=== PATIENT | female | born 1950 | race Caucasian/White ===

== ENCOUNTER → 2017-04-02 | Outpatient (CLI) | payer MEDICARE, OTHER ==
--- NOTE | 2017-04-03 16:19 | WOMENS IMAGING REPORT ---
EXAM DESCRIPTION: 3D SCREENING MAMMO BILAT COMPLETED DATE/TIME: 04/02/2017 10:41 am REASON FOR STUDY: ROUTINE SCREENING; Z12.31 Z12.31 ENCNTR SCREEN MAMMOGRAM FOR MALIGNANT NEOPLASM O F ALVINO COMPARISON: None. TECHNIQUE: Standard craniocaudal and mediolateral oblique views of each breast recorded using digita l acquisition and breast tomosynthesis. LIMITATIONS: None. FINDINGS: No masses, calcifications or architectural distortion. No areas of suspicion. Read with the assistance of CAD. .[facility] - R2 Cenova Version 1.3 .[facility] - R2 Cenova Version 1.3 .[facility] - R2 Cenova Version 2.4 .[facility] [place] R2 Cenova Version 2.4 .[facility] - R2 Scarfer Version 9.2 IMPRESSION: NORMAL MAMMOGRAM. BIRADS 1. BREAST DENSITY: a. The breasts are almost entirely fatty. BIRAD: 1 NEGATIVE RECOMMENDATION: ROUTINE SCREENING COMMENT: The patient has been notified of the results by letter per SA requirements. Additional no tification policies are in place for contacting patient with suspicious or incomplete findings. Quality ID #225: The [employer] recommends an annual screening mammogram for women aged 40 years or over. This facility utilizes a reminder system to ensure that all patients receive reminder letters, and/or direct phone calls for appointments. This includes reminders for routine scr eening mammograms, diagnostic mammograms, or other Breast Imaging Interventions when appropriate. Th is patient will be placed in the appropriate reminder system. The [employer] (ACR) has developed recommendations for screening MRI of the breast s in certain patient populations, to be used in conjunction with mammography. Breast MRI surveillanc e may be appropriate for women with more than 20% lifetime risk of developing breast cancer as deter mined by genetic testing, significant family history of the disease, or history of mantle radiation f or Hodgkins Disease. ACR Practice Guidelines 2008. DBT Technology DBT is a type of tomographic mammography. With conventional mammography, overlapping breast tissue ma y make lesions difficult to detect, even with good compression. DBT uses an x-ray tube that rotates a round the breast, taking images at different angles. These images are then combined to create thin sl ices of the breast that the radiologist can view as a 3D reconstruction. The [employer] unit can perform full-field digital mammograms (2D imaging); or DBT (3D imaging); or both, in a combination mode that quickly performs both the mammogram and the tomosynthesis scan while the breast is still compressed. PQRS 6045F: Fluoroscopic imaging is not utilized for breast tomosynthesis. TECHNICAL DOCUMENTATION: FINDING NUMBER: (1) ASSESSMENT: (1) JOB ID: [id number] [employer]- All Rights Reserved
== END ==
LOC: WI 09:20
PROVIDERS: ATTEND Family Medicine
DX: Z12.31 Encounter for screening mammogram for malignant neoplasm of breast (principal)
CPT/HCPCS: 77063; 77067

== ENCOUNTER → 2018-11-19 | Day surgery (SDC) | payer MEDICARE, OTHER ==
[~2018-11-19] MED LIST: LIDOCAINE 1% INJ-PF (10 MG/ML) 30 ML SDV ONE
== END ==
LOC: WI 12:14
PROVIDERS: ATTEND Family Medicine
DX: C50.911 Malignant neoplasm of unspecified site of right female breast (principal); C77.3 Secondary and unspecified malignant neoplasm of axilla and upper limb lymph nodes; N63.10 Unspecified lump in the right breast, unspecified quadrant
CPT/HCPCS: 88342 ×2; 88341 ×2; 88305 ×2; 19083; 19084; 77065; J3490

== ENCOUNTER → 2018-12-17 | Outpatient (CLI) | payer MEDICARE, OTHER ==
--- NOTE | 2018-12-17 14:16 | RADIOLOGY REPORT (SQ) ---
EXAM DESCRIPTION: NM WHOLE BODY BONE SCAN COMPLETED DATE/TIME: 12/17/2018 12:04 pm REASON FOR STUDY: BREAST CA (C50.811) C50.811 MALIGNANT NEOPLASM OF OVRLP SITES OF RIGHT FEMALE BR COMPARISON: None available. RADIONUCLIDE AND DOSE: 22 millicuries Tc99m MDP. The route of agent administration: Intravenous. ADDITIONAL DRUGS AND DOSES: None. TECHNIQUE: Routine delayed images at 3 hour post radionuclide injection acquired of the bony skeleto n including anterior and posterior whole-body projections and additional focused images as needed. LIMITATIONS: Increased soft tissue uptake. Associated somewhat limited resolution of the bones. Th is is at least mildly limiting. FINDINGS: BONES: Slightly heterogeneous rib and spine uptake. The spine uptake may be degenerative. Ribs are indeterminate but could be due to the above-noted sub optimal imaging. Focal increased up take about the right hip, lesser extent left hip. Possibly degenerative. Degenerative changes are a lso suspected in the knees, ankles, feet and shoulders. KIDNEYS: Symmetric excretion without obstruction. OTHER: No other significant finding. IMPRESSION: Somewhat limited study as above. Predominantly degenerative changes are suspected. Het erogeneous spine and rib uptake, however. Unclear if this is simply artifact If the patient has outside CT imaging of the thorax and pelvis, correlation with prove helpful. If n ot, consider body CT imaging and/or PET. COMMENT: Quality measure 147: No available prior imaging studies for comparison TECHNICAL DOCUMENTATION: JOB ID: [id number] [employer]- All Rights Reserved Reading location - IP/workstation name: [email or web address]
== END ==
LOC: RAD 07:46
PROVIDERS: ATTEND Internal Medicine Hematology & Oncology
DX: C50.811 Malignant neoplasm of overlapping sites of right female breast (principal)
CPT/HCPCS: 78306; A9561; Q9969

== ENCOUNTER → 2018-12-18 | Outpatient (CLI) | payer MEDICARE, OTHER ==
--- NOTE | 2018-12-18 15:04 | RADIOLOGY REPORT (SQ) ---
EXAM DESCRIPTION: CT CHEST WITH; CT ABD/PELVIS WITH IV ORAL COMPLETED DATE/TIME: 12/18/2018 1:14 pm REASON FOR STUDY: BREAST CA (C50.811) C50.811 MALIGNANT NEOPLASM OF OVRLP SITES OF RIGHT FEMALE BR COMPARISON: Bone scan 12/17/2018 Ultrasound-guided breast biopsy 11/19/2018 CONTRAST TYPE AND DOSE: contrast/concentration: Isovue 350.00 mg/ml; Total Contrast Delivered: 100.0 ml; Total Saline Delivered: 72.0 ml RENAL FUNCTION: Creatinine 0.9 TECHNIQUE: CT scan of the chest performed using helical scanning technique with dynamic intravenous contrast injection. Images reviewed with lung, soft tissue and bone windows. Reconstructed coronal a nd sagittal MPR images reviewed. All images stored on PACS. CT scan of the abdomen and pelvis performed with intravenous and with oral contrastusing helical scan june technique with dynamic intravenous contrast injection. Images reviewed with lung, soft tissue a nd bone windows. Reconstructed coronal and sagittal MPR images reviewed. Delayed images for evaluat ion of the urinary system also acquired and evaluated. All images stored on PACS. All CT scanners at this facility use dose modulation, iterative reconstruction, and/or weight based d osing when appropriate to reduce radiation dose to as low as reasonably achievable (ALARA). [facility]: Dose Right [facility]: CareDose [facility]: Dose Right [facility]: Teradose 4D [facility]: Smart Technologies RADIATION DOSE: CT Rad equipment meets quality standard of care and radiation dose reduction techniq ues were employed. CTDIvol: 19.5 - 27.7 mGy. DLP: 3606 mGy-cm. . LIMITATIONS: None. FINDINGS: CHEST: LUNGS AND PLEURA: No opacities, nodules, masses. No pneumothorax. No effusions. HILAR AND MEDIASTINAL STRUCTURES: No identified masses or abnormal nodes. HEART AND VASCULAR STRUCTURES: No thoracic aortic aneurysm or dissection. Calcified coronary arterie s. Prominent central pulmonary arteries and mild cardiomegaly. HARDWARE: None. THYROID AND OTHER SOFT TISSUES: Right axillary lymph node biopsy clip 3 x 2 cm in size axial image 17 , coronal image 53. 1.8 cm breast mass with clip in the right retroareolar region axial image 24 BONES: No significant finding. OTHER: No other significant finding. ABDOMEN AND PELVIS: LIVER: Normal size. No masses. No dilated ducts. SPLEEN: Normal size. No focal lesions. PANCREAS: No masses. No significant calcifications. No adjacent inflammation or peripancreatic fluid collections. Pancreatic duct not dilated. GALLBLADDER: Surgically absent. ADRENAL GLANDS: No significant masses or asymmetry. RIGHT KIDNEY AND URETER: No solid masses. No significant calcification. No hydronephrosis or hydroure ter. LEFT KIDNEY AND URETER: No solid masses. No significant calcification. No hydronephrosis or hydrouret er. AORTA AND VESSELS: No aneurysm. No dissection. Renal arteries, SMA, celiac without stenosis. RETROPERITONEUM: No retroperitoneal adenopathy, hemorrhage or masses. BOWEL AND PERITONEAL CAVITY: No masses or inflammatory changes. No free fluid or peritoneal masses. Patient drank oral contrast. APPENDIX: Not identified. No right lower quadrant inflammatory change ABDOMINAL WALL: Fat containing umbilical hernia PELVIS: No mass or free fluid. Normal bladder. Post hysterectomy BONES: Advanced arthritis right hip OTHER: No other significant finding. IMPRESSION: Previously biopsied malignant right breast mass and malignant right axillary lymph node. No CT evidence of widespread metastatic disease given history of breast cancer TECHNICAL DOCUMENTATION: JOB ID: [id number] Quality ID # [id number]: Final reports with documentation of one or more dose reduction techniques (e.g., Au tomated exposure control, adjustment of the mA and/or kV according to patient size, use of iterative reconstruction technique) 2010 [employer]- All Rights Reserved Reading location - IP/workstation name: [email or web address]
== END ==
LOC: RAD 12:33
PROVIDERS: ATTEND Internal Medicine Hematology & Oncology
DX: C50.811 Malignant neoplasm of overlapping sites of right female breast (principal)
CPT/HCPCS: 71260; 74177; 82565

== ENCOUNTER → 2019-05-31 | Outpatient (CLI) | payer MEDICARE, OTHER ==
--- NOTE | 2019-05-31 11:24 | WOMENS IMAGING REPORT ---
EXAM DESCRIPTION: U/S BREAST UNILAT LIMITED COMPLETED DATE/TIME: 05/31/2019 9:44 am REASON FOR STUDY: C50.811 MALIGNANT NEOPLASM OF OVERLAPPING SITES OF RIGHT FEMALE BREAST C50.811 MA LIGNANT NEOPLASM OF OVRLP SITES OF RIGHT FEMALE BR COMPARISON: 11/19/2018 ultrasound and mammograms. TECHNIQUE: Real-time and static grayscale imaging performed of the right breast targeted to the area of clinical/mammographic concern. Selected color Doppler images recorded. LIMITATIONS: None. FINDINGS: MASS: 12 o'clock periareolar irregular hypoechoic mass with shadowing and ill definition o f margins, spiculated appearance. On today's study this measures 2.5 x 1.9 x 2.2 cm. On prior study from 2019, grossly 1.8 x 1.3 x 2.3 cm. Ill-defined margins makes precise comparison difficult. OTHER: Node in the right axilla measures up to 1.1 cm in short axis IMPRESSION: 1. Known right breast cancer. Limited direct comparison possible given ill-defined margins of the ma ss as above. BIRAD: 6 Known biopsy-proven malignancy. Surgical excision when clinically appropriate. RECOMMENDATION: RECOMMENDED FOLLOW-UP: Clinical followup per oncology and surgery. Reportedly, the patient states no treatment, I have limited clinical information. COMMENT: The [employer] (ACR) has developed recommendations for screening MRI of the breasts in certain patient populations, to be used in conjunction with mammography. Breast MRI s urveillance may be appropriate for women with more than 20% lifetime risk of developing breast cancer as determined by genetic testing, significant family history of the disease, or history of mantle r adiation for Hodgkins Disease. ACR Practice Guidelines 2008. TECHNICAL DOCUMENTATION: JOB ID: [id number] 2010 [employer]- All Rights Reserved Reading location - IP/workstation name: [email or web address]
== END ==
LOC: WI 08:45
PROVIDERS: ATTEND Physician Assistant Medical
DX: C50.811 Malignant neoplasm of overlapping sites of right female breast (principal)
CPT/HCPCS: 76642

== ENCOUNTER 2019-06-16 08:12 | Day surgery (SDC) | payer MEDICARE, OTHER ==
[~2019-06-16 08:12] MED LIST changes: +ACETAMINOPHEN 325 MG TABLET PO PRN; +CEFAZOLIN 1 GM/D5W RTU 1 GM/50 ML RTUPB IV ONE; +CEFAZOLIN 1 GM/D5W RTU 1 GM/50 ML RTUPB IV PRN; +DEXAMETHASONE SOD PHOSPHATE INJ 4 MG/1 ML VIAL ONE; +FENTANYL CITRATE INJ/PF 100 MCG/2 ML AMPUL ONE; +GLYCOPYRROLATE 1 MG/5 ML VIAL ONE; +HYDROMORPHONE HCL INJ/PF 2 MG/ML AMPULE ONE; +KETOROLAC TROMETHAMINE 60 MG/2 ML SDV ONE; -LIDOCAINE 1% INJ-PF (10 MG/ML) 30 ML SDV ONE; +MIDAZOLAM 2 MG/2 ML INJ ONE; +ONDANSETRON HCL INJ/PF 4 MG/2 ML SDV ONE; +RINGERS SOLUTION,LACTATED 1,000 ML IV PRN; +ROCURONIUM BROMIDE INJ 50 MG/5 ML VIAL IV ONE; +SUCCINYLCHOLINE CHLORIDE INJ 200 MG/10 ML VIAL ONE
[2019-06-16] MEDS ORDERED: PROPOFOL INJ 200 MG/20 ML VIAL IV ONE (08:13)
[2019-06-16 09:04] LABS: ANION GAP 12 (5-19); BLOOD UREA NITROGEN 15 mg/dL (7-20); CALCIUM 9.4 mg/dL (8.4-10.2); CARBON DIOXIDE 26 mmol/L (22-30); CHLORIDE 101 mmol/L (98-107); GLUCOSE 152 mg/dL (75-110); POTASSIUM 4.4 mmol/L (3.6-5.0)
[2019-06-16 09:18] LABS: HEMATOCRIT 41.6 % (36.0-47.0); HEMOGLOBIN 14.1 g/dL (12.0-15.5); MEAN CORPUSCULAR HEMOGLOBIN 32.2 pg (27.0-33.4); MEAN CORPUSCULAR HGB CONC 33.9 g/dL (32.0-36.0); MEAN CORPUSCULAR VOLUME 95 fl (80-97); PLATELET COUNT 261 10^3/uL (150-450); RED BLOOD COUNT 4.39 10^6/uL (3.72-5.28); RED CELL DISTRIBUTION WIDTH 15.3 % (11.5-14.0); WHITE BLOOD COUNT 9.1 10^3/uL (4.0-10.5)
[2019-06-16] MEDS ORDERED: MICROFIBRILLAR COLLAGEN 1 GM PACK ONE (09:19)
[2019-06-16] MEDS ORDERED: METHYLENE BLUE 50 MG/10 ML AMPULE ONE (09:20)
[2019-06-16] MEDS ORDERED: LIDOCAINE 1%/EPINEPHRINE INJ 20 ML VIAL ONE (09:20)
[2019-06-16] MEDS ORDERED: MORPHINE SULFATE 10 MG/ML INJ IV PRN (10:08)
[2019-06-16] MEDS ORDERED: DIPHENHYDRAMINE HCL 50 MG/ML VIAL IV PRN (10:08)
[2019-06-16] MEDS ORDERED: MEPERIDINE HCL/PF INJ 25 MG/1 ML DISP.SYRIN IV PRN (10:08)
[2019-06-16] MEDS ORDERED: FENTANYL CITRATE INJ/PF 100 MCG/2 ML AMPUL IV PRN ×3 (10:08)
[2019-06-16] MEDS ORDERED: ONDANSETRON HCL INJ/PF 4 MG/2 ML SDV IV PRN (10:08)
--- NOTE | 2019-06-16 11:25 | EKG REPORT ---
SEVERITY:- OTHERWISE NORMAL ECG - SINUS BRADYCARDIA NONSPECIFIC IVCD : Confirmed by: Salvador Colin MD 16-Jun-2019 11:24:18
[2019-06-16] MEDS ORDERED: ACETAMINOPHEN WITH CODEINE #3 TABLET PO PRN (11:55)
[2019-06-16] MEDS ORDERED: DEXTROSE 5%-LACTATED RINGERS 1,000 ML IV PRN (11:55)
--- NOTE | 2019-06-16 12:41 | Operative Report ---
Operative Report DATE OF SURGERY: 06/16/19 PREOPERATIVE DIAGNOSIS: Locally advanced, hormone sensitive invasive ductal car cinoma right breast and axilla POSTOPERATIVE DIAGNOSIS: Same OPERATION: Right modified radical mastectomy, with drain placement x2 SURGEON: SERENITY PEREZ CRANE HOIST OR LIFT OPERATOR: PABLO ENGLISH ANESTHESIA: GA TISSUE REMOVED OR ALTERED: Right breast, and axillary contents en bloc COMPLICATIONS: none ESTIMATED BLOOD LOSS: 150 cc INTRAOPERATIVE FINDINGS: See below PROCEDURE: The patient was taken to the preop holding area to the main operating room and general anesthesia was induced. The right arm was abducted, the right axilla and right breast and chest wall were prepped and draped sterile fashion. Surgical plan surgical timeout were conducted. Markings were made on the skin for standard right mastectomy. The elliptical markings extended from the parasternal area to the right axilla. Of note patient had previous hidradenitis suppurativa of the right axilla with significant scarring of the right axillary skin. The ellipse of skin was incised with a #10 blade. Superior and inferior skin flaps were raised of appropriate thickness. Superiorly the level of dissection was taken to the subclavicular area. Medially the dissection was taken to the parasternal musculature, and inferiorly the serratus anterior muscle. The right breast was taken off of the anterior chest wall including the pectoralis major fascia. Inferiorly and laterally, the dissection was taken down to the latissimus dorsi muscle. Bookwalter retractor was established for exposure. We now opened the skin laterally, elevating the axillary skin off of the axillary fat. There is a moderate amount of scarring in this region. Once the lateral axillary fold was free, we established retraction up underneath the pectoralis major muscle. We now completed the axillary dissection which was felt to be comprehensive. Dissection was taken down and sequential fashion moving from cephalad to caudad, taking all of the biliary fat and lymph nodes. Axillary fat was quite loose and flimsy. The fat beneath the pectoralis major muscle, and pectoralis minor muscle was mobilized. The nerve to the serratus anterior muscle was preserved throughout the dissection. Similarly, the thoracodorsal complex was preserved throughout the dissection. Both of these nerves were pinched with a forceps, and respective muscles twitched. A single intercostal brachial nerve was sacrificed in the dissection. We took the axillary contents off of the axillary vein under direct scissor dissection. Working now in a circumferential fashion, all the axillary fat and lymphatic tissue was stripped off of the axillary vein, and thoracodorsal pedicle. Eventually we had the entire axillary contents freed up, and the specimen was taken off of the patient and sent en bloc to pathology. Loose fragments of fat lymphatic tissue also sent. 2 large Donny drains were placed in the inferior skin flap. Hemostasis was checked, felt to be satisfactory. Operative field irrigated several times with warm saline solution. Sponge and needle counts are correct. Wound closed with multiple running 2-0 Vicryl sutures and Dermabond glue. Patient time procedure well, extubated, taken recovery in stable condition. The physician customer service assistant, Ms. Pacheco, provided assistance during this case by: Assisting with retracting tissue, instillation of local anesthesia and closure of skin incisions.
[2019-06-16] MEDS: FENTANYL CITRATE INJ/PF 100 MCG/2 ML AMPUL ONE ×2 (13:00→13:10)
--- NOTE | 2019-06-17 08:15 | PDOC DISCHARGE SUMMARY ---
General - Admit/Disc Date/PCP Admission Date/Primary Care Provider: EDILSON GARZON MD Discharge Date: 06/17/19 - Discharge Diagnosis Final Diagnosis: Invasive right breast carcinoma - Assessment Summary: 68-year-old white female with locally advanced right breast carcinoma who was admitted to the ambulatory surgery for right modified radical mastectomy. She tolerated the procedure well. She had an uneventful night in the hospital, pain managed, and she voided without difficulty. She was taught drain management, drainage and recording of output. She will take her home medications upon discharge including pain medication. She will receive a follow-up appointment with [facility] in 1 week. She is instructed right arm exercises, and mastectomy packet provided. - Additional Information Resuscitation Status: Full Code Discharge Diet: As Tolerated Discharge Activity: Other - Encouraged range of motion right arm; he may shower today. Referrals: EDILSON GARZON MD [Primary Care Provider] - Home Medications: Alendronate Sodium 70 mg PO FR@1000 06/15/19 Allopurinol [Zyloprim] 300 mg PO DAILY 06/15/19 Alprazolam [Xanax] 0.5 mg PO Q6 06/15/19 Ascorbic Acid [Vitamin C] 250 mg PO Q2DAYS 06/15/19 Aspirin [Aspir-Low] 81 mg PO DAILY 06/15/19 Fenofibrate 54 mg PO DAILY 06/15/19 Ferrous Gluconate [Iron] 325 mg PO Q2DAYS 06/15/19 Levothyroxine Sodium 175 mcg PO DAILY 06/15/19 Metoprolol Succinate [Toprol Xl 50 mg Tab.sr] 50 mg PO Q12 06/15/19 Pantoprazole Sodium 40 mg PO DAILY 06/15/19 Fluticasone Propionate [Flonase Allergy Relief] 1 spray NASL DAILY 06/16/19 Letrozole [Femara 2.5 mg Tablet] 2.5 mg PO DAILY 06/16/19 Venlafaxine HCl ER [Effexor Xr 75 mg Cap.sr] 75 mg PO QAM 06/16/19 Hydrocodone/Acetaminophen [[place] 10-325 mg Tablet] 1 tab PO Q6HP PRN 06/17/19 History of Present Illiness History of Present Illness: ODILON BEAR is a 68 year old female Physical Exam Vital Signs: Temp Pulse Resp BP Pulse Ox 98.1 F 64 16 147/60 H 97 06/17/19 07:29 06/17/19 07:29 06/17/19 07:29 06/17/19 07:29 06/17/19 07:29 Intake & Output 06/16/19 06/17/19 06/18/19 06:59 06:59 06:59 Intake Total 3970 Output Total 2330 Balance 1640 Weight 105.69 kg 107.1 kg Results Laboratory Results: WBC 9.1 10^3/uL (4.0-10.5) 06/16/19 08:38 RBC 4.39 10^6/uL (3.72-5.28) 06/16/19 08:38 Hgb 14.1 g/dL (12.0-15.5) 06/16/19 08:38 Hct 41.6 % (36.0-47.0) 06/16/19 08:38 MCV 95 fl (80-97) 06/16/19 08:38 MCH 32.2 pg (27.0-33.4) 06/16/19 08:38 MCHC 33.9 g/dL (32.0-36.0) 06/16/19 08:38 RDW 15.3 % (11.5-14.0) H 06/16/19 08:38 Plt Count 261 10^3/uL (150-450) 06/16/19 08:38 Sodium 138.6 mmol/L (137-145) 06/16/19 08:38 Potassium 4.4 mmol/L (3.6-5.0) 06/16/19 08:38 Chloride 101 mmol/L (98-107) 06/16/19 08:38 Carbon Dioxide 26 mmol/L (22-30) 06/16/19 08:38 Anion Gap 12 (5-19) 06/16/19 08:38 BUN 15 mg/dL (7-20) 06/16/19 08:38 Creatinine 0.81 mg/dL (0.52-1.25) 06/16/19 08:38 Est GFR ( Amer) > 60 (>60) 06/16/19 08:38 Est GFR (MDRD) Non-Af > 60 (>60) 06/16/19 08:38 Glucose 152 mg/dL (75-110) H 06/16/19 08:38 Calcium 9.4 mg/dL (8.4-10.2) 06/16/19 08:38
[2019-06-17 09:07] VITALS: BP 140/52
[2019-06-17] MEDS ORDERED: ALLOPURINOL 300 MG TABLET PO SCH (10:00)
[2019-06-17] MEDS ORDERED: ASPIRIN 81 MG TABLET, ENT COATED PO SCH (10:00)
[2019-06-17] MEDS ORDERED: (PENDING PHARMACY ID) (Ascorbic Acid [Vitamin C] 250 MG) PO SCH (10:00)
[2019-06-17] MEDS ORDERED: VENLAFAXINE HCL 75 MG TABLET PO SCH (10:00)
[2019-06-17] MEDS ORDERED: METOPROLOL SUCCINATE 50 MG TAB.SR.24H PO SCH (10:00)
[2019-06-17] MEDS ORDERED: PANTOPRAZOLE SODIUM 40 MG TABLET.DR PO SCH (10:00)
[2019-06-17] MEDS ORDERED: (PENDING PHARMACY ID) (Fenofibrate [Fenofibrate] 54 MG) PO SCH (10:00)
[2019-06-17] MEDS ORDERED: (PENDING PHARMACY ID) (Levothyroxine Sodium [Levothyroxine Sodium] 175 MCG) PO SCH (10:00)
[2019-06-17] MEDS ORDERED: ALPRAZOLAM 0.5 MG TABLET PO SCH (10:00)
== END 2019-06-17 09:45 | disposition home or self-care (01) ==
LOC: OROUT 08:12 → 2S 14:25 → OROUT 06-17 09:45
PROVIDERS: ATTEND Surgery
DX: C50.811 Malignant neoplasm of overlapping sites of right female breast (principal); E05.90 Thyrotoxicosis, unspecified without thyrotoxic crisis or storm; E03.9 Hypothyroidism, unspecified; E78.5 Hyperlipidemia, unspecified; D53.9 Nutritional anemia, unspecified; E78.00 Pure hypercholesterolemia, unspecified; I49.9 Cardiac arrhythmia, unspecified; G89.4 Chronic pain syndrome; F11.20 Opioid dependence, uncomplicated; I12.9 Hypertensive chronic kidney disease with stage 1 through stage 4 chronic kidney disease, or unspecified chronic kidney disease; N18.2 Chronic kidney disease, stage 2 (mild); Z85.41 Personal history of malignant neoplasm of cervix uteri; M06.9 Rheumatoid arthritis, unspecified; D64.9 Anemia, unspecified; Z79.899 Other long term (current) drug therapy; Z79.82 Long term (current) use of aspirin
CPT/HCPCS: 36415; 85027; 80048; 88342 ×2; 88341 ×2; 88309 ×2; 93005; 93010; 94799; 00404; 19307; A9270; J2250; J0690; J3490 ×3; J1100; J1885; J3010; J1170; J0330; J2405; J7121; J2704; 404; Q9968

== ENCOUNTER 2019-07-03 14:17 | Emergency (ER) | payer MEDICARE, OTHER ==
--- NOTE | 2019-07-03 14:39 | ER Document Report ---
HPI - HPI Time Seen by Provider: 07/03/19 14:24 Pain Level: 3 Notes: 68-year-old female patient presents to the emergency department chief complaint of concern for possible infection to her surgical site. Patient had a right- sided mastectomy done on 06/16/[address] Gonsalez. She states that over the last couple days there is been increased redness, warmth and pain to the area. She states she called the on-call surgeon last night who directed her to try warm compresses to the area. Patient reports the warm compresses did not help. She has not had a fever. Past Medical History - General Information source: Patient - Social History Smoking Status: Former Smoker Frequency of alcohol use: Rare Drug Abuse: None Family History: Reviewed & Not Pertinent Patient has suicidal ideation: No Patient has homicidal ideation: No - Medical History Medical History: Other - breast cancer - Past Medical History Cardiac Medical History: Denies: Hx Coronary Artery Disease, Hx Heart Attack, Hx Hypertension Pulmonary Medical History: Denies: Hx Asthma, Hx Bronchitis, Hx COPD, Hx Pneumonia Neurological Medical History: Denies: Hx Cerebrovascular Accident, Hx Seizures Musculoskeletal Medical History: Reports Hx Arthritis - RA, OA Past Surgical History: Reports: Hx Breast Surgery - Immunizations Immunizations up to date: Yes Hx Diphtheria, Pertussis, Tetanus Vaccination: - UNSURE Vertical Provider Document - CONSTITUTIONAL Notes: PHYSICAL EXAMINATION: GENERAL: Well-appearing, well-nourished and in no acute distress. HEAD: Atraumatic, normocephalic. EYES: Pupils equal round and reactive to light, extraocular movements intact, conjunctiva are normal. ENT: Nares patent, oropharynx clear without exudates. Moist mucous membranes. NECK: Normal range of motion, supple without lymphadenopathy LUNGS: Breath sounds clear to auscultation bilaterally and equal. No wheezes rales or rhonchi. HEART: Regular rate and rhythm without murmurs ABDOMEN: Soft, nontender, nondistended abdomen. No guarding, no rebound. No masses appreciated. Female : deferred Musculoskeletal: Normal range of motion, no pitting or edema. No cyanosis. NEUROLOGICAL: Cranial nerves grossly intact. Normal speech, normal gait. Norm al sensory, motor exams PSYCH: Normal mood, normal affect. SKIN: Right breast-Erythema on the inferior mastectomy flap, in the area of the previous drain., other - Small seroma at the medial aspect of the incision. Necrotic area, 2 x 1 cm in the right axilla, with foul-smelling drainage. - INFECTION CONTROL TRAVEL OUTSIDE OF THE [place] IN LAST 30 DAYS: No Course - Re-evaluation Re-evalutation: 07/03/19 14:47 Consulted on-call surgeon, Dr. Leon. We will draw CBC and he will come and ev aluate the patient in room 21. - Vital Signs Vital signs: Temp Pulse Resp BP Pulse Ox 98.2 F 50 L 16 127/67 H 96 07/03/19 14:27 07/03/19 14:27 07/03/19 14:27 07/03/19 14:27 07/03/19 14:27 - Laboratory Result Diagrams: 07/03/19 14:52 Discharge - Discharge Clinical Impression: Wound cellulitis after surgery Condition: Stable Disposition: HOME, SELF-CARE Additional Instructions: Please do dressing changes twice daily as directed by Dr. Leon. We send you home with some supplies to help with this. Please watch for signs of worsening infection to include increased redness, increased drainage or development of fever. If you develop a fever please return to the emergency department. Take medications as prescribed, finish the entire course of antibiotics even if your symptoms resolve. Take narcotic pain medication for severe pain only. Fo llow-up with Dr. Leon in his office next week, call them Friday to schedule an appointment. Prescriptions: Clindamycin HCl 300 mg PO QID #28 capsule Hydrocodone/Acetaminophen [[place] 5-325 mg Tablet] 1 tab PO Q4H PRN #15 tablet PRN Reason: Referrals: ANIKA LEON MD [ACTIVE STAFF] - Follow up as needed
[2019-07-03] MEDS ORDERED: LIDOCAINE 1% INJ-PF (10 MG/ML) 30 ML SDV INFIL ONE (15:04)
[2019-07-03 15:06] LABS: ABSOLUTE EOSINOPHILS # (AUTO) 0.6 10^3/uL (0.0-0.6); ABSOLUTE LYMPHOCYTES (AUTO) 2.5 10^3/uL (0.5-4.7); ABSOLUTE MONOCYTES (AUTO) 1.1 10^3/uL (0.1-1.4); ABSOLUTE NEUT (AUTO) 13.8 10^3/uL (1.7-8.2); BASOPHILS % (AUTO) 0.2 % (0-2); EOSINOPHILS % (AUTO) 3.5 % (0-6); HEMATOCRIT 39.7 % (36.0-47.0); HEMOGLOBIN 13.2 g/dL (12.0-15.5); LYMPHOCYTES % (AUTO) 13.8 % (13-45); MEAN CORPUSCULAR HEMOGLOBIN 31.3 pg (27.0-33.4); MEAN CORPUSCULAR HGB CONC 33.2 g/dL (32.0-36.0); MEAN CORPUSCULAR VOLUME 94 fl (80-97); MONOCYTES % (AUTO) 6.3 % (3-13); PLATELET COUNT 444 10^3/uL (150-450); RED BLOOD COUNT 4.21 10^6/uL (3.72-5.28); RED CELL DISTRIBUTION WIDTH 15.3 % (11.5-14.0); SEGMENTED NEUTROPHILS % (AUTO) 76.2 % (42-78); TOTAL CELLS COUNTED % (AUTO) 100 %; WHITE BLOOD COUNT 18.1 10^3/uL (4.0-10.5)
[2019-07-03 16:03] VITALS: BP 130/63
--- NOTE | 2019-07-03 17:52 | PDOC CONSULTATION ---
Consultation Consult Date: 07/03/19 Provider Consulted: SURGICAL SURGICALIST MD Consult reason:: redness at mastectomy site, necrotic skin, foul odor History of Present Illness Admission Date/PCP: EDILSON GARZON MD History of Present Illness: ODILON BEAR is a 68 year old female seen in consultation at the request of the emergency department. The patient recently had a right modified radical mastectomy by Dr. Gonsalez approximately 2 weeks ago. The patient reports 2 to 3-day history of redness in the right inferior lateral chest wall, with darkening of the skin in the axilla, and foul-smelling drainage. She reports "puffiness" beneath the midline incision, that is essentially asymptomatic. She does report pain in the right lateral chest wall, and into the axilla. She rates it as 3 out of 10. It is dull and aching. It does not radiate. The patient denies fevers or chills. She also denies chest pain, shortness of breath, abdominal pain, melena, hematochezia, hematemesis, orthostasis, dizziness, fatigue, malaise, headache, nausea, vomiting, cough. Past Medical History Cardiac Medical History: Denies: Coronary Artery Disease, Myocardial Infarction, Hypertension Pulmonary Medical History: Denies: Asthma, Bronchitis, Chronic Obstructive Pulmonary Disease (COPD), Pneumonia Neurological Medical History: Denies: Seizures Musculoskeltal Medical History: Reports: Arthritis - RA, OA Hematology: Reports: Anemia - HX OF TAKIN IRON PILLS Past Surgical History Past Surgical History: Reports: Mastectomy Social History Smoking Status: Former Smoker Family History Parental Family History Reviewed: Yes Children Family History Reviewed: Yes Sibling(s) Family History Reviewed.: Yes Medication/Allergy Home Medications: Alendronate Sodium 70 mg PO FR@1000 06/15/19 Allopurinol [Zyloprim] 300 mg PO DAILY 06/15/19 Alprazolam [Xanax] 0.5 mg PO Q6 06/15/19 Ascorbic Acid [Vitamin C] 250 mg PO Q2DAYS 06/15/19 Aspirin [Aspir-Low] 81 mg PO DAILY 06/15/19 Fenofibrate 54 mg PO DAILY 06/15/19 Ferrous Gluconate [Iron] 325 mg PO Q2DAYS 06/15/19 Levothyroxine Sodium 175 mcg PO DAILY 06/15/19 Metoprolol Succinate [Toprol Xl 50 mg Tab.sr] 50 mg PO Q12 06/15/19 Pantoprazole Sodium 40 mg PO DAILY 06/15/19 Fluticasone Propionate [Flonase Allergy Relief] 1 spray NASL DAILY 06/16/19 Letrozole [Femara 2.5 mg Tablet] 2.5 mg PO DAILY 06/16/19 Venlafaxine HCl ER [Effexor Xr 75 mg Cap.sr] 75 mg PO QAM 06/16/19 Hydrocodone/Acetaminophen [Basehor 10-325 mg Tablet] 1 tab PO Q6HP PRN 06/17/19 Clindamycin HCl 300 mg PO QID #28 capsule 07/03/19 Hydrocodone/Acetaminophen [Basehor 5-325 mg Tablet] 1 tab PO Q4H PRN #15 tablet Allergies/Adverse Reactions: No Known Allergies Allergy (Verified 07/03/19 14:21) Review of Systems Constitutional: ABSENT: anorexia, chills, fatigue, fever(s), headache(s), weakness Eyes: ABSENT: visual disturbances Ears: ABSENT: hearing changes Nose, Mouth, and Throat: ABSENT: sore throat Cardiovascular: ABSENT: chest pain, dyspnea on exertion Respiratory: ABSENT: cough Gastrointestinal: ABSENT: abdominal pain Genitourinary: ABSENT: dysuria Musculoskeletal: ABSENT: back pain Integumentary: PRESENT: erythema - Right lateral inferior chest wall, other - Necrotic area of the axillary incision, with foul-smelling drainage. Neurological: ABSENT: confusion, convulsions, dizziness Psychiatric: ABSENT: anxiety, depression Endocrine: ABSENT: cold intolerance, heat intolerance Hematologic/Lymphatic: ABSENT: easy bleeding, easy bruising Physical Exam Vital Signs: Temp Pulse Resp BP Pulse Ox 98.7 F 51 L 18 130/63 H 100 07/03/19 15:58 07/03/19 15:58 07/03/19 15:58 07/03/19 15:58 07/03/19 15:58 Intake & Output 07/02/19 07/03/19 07/04/19 06:59 06:59 06:59 Weight 108.7 kg General appearance: PRESENT: no acute distress, cooperative, obese Head exam: PRESENT: atraumatic, normocephalic Eye exam: PRESENT: EOMI, PERRLA. ABSENT: scleral icterus Mouth exam: PRESENT: moist, neck supple Neck exam: ABSENT: meningismus, tenderness, thyromegaly, tracheal deviation Respiratory exam: PRESENT: chest wall tenderness - Right inferior lateral chest wall, beneath mastectomy.. ABSENT: tachypnea Cardiovascular exam: ABSENT: tachycardia Vascular exam: PRESENT: normal capillary refill GI/Abdominal exam: PRESENT: soft. ABSENT: distended, rebound, rigid, tenderness Rectal exam: PRESENT: deferred Extremities exam: ABSENT: clubbing Musculoskeletal exam: ABSENT: deformity Neurological exam: PRESENT: alert, awake, oriented to person, oriented to place, oriented to time, oriented to situation, CN II-XII grossly intact Psychiatric exam: ABSENT: agitated, anxious, depressed Focused psych exam: ABSENT: delusional Skin exam: PRESENT: erythema - Erythema on the inferior mastectomy flap, in the area of the previous drain., other - Small seroma at the medial aspect of the incision. Necrotic area, 2 x 1 cm in the right axilla, with foul-smelling drainage. Results Laboratory Results: 07/03/19 14:52 07/03/19 14:52 WBC 18.1 H RBC 4.21 Hgb 13.2 Hct 39.7 MCV 94 MCH 31.3 MCHC 33.2 RDW 15.3 H Plt Count 444 Seg Neutrophils % 76.2 Assessment & Plan - Diagnosis (1) Skin flap necrosis Is this a current diagnosis for this admission?: Yes - Plan Summary Plan Summary: This is a 68-year-old female with a small area (2 x 1 cm) of skin necrosis related to her inferior mastectomy flap. She does have foul-smelling drainage. There is erythema of the skin extending medially from this area, along the inferior flap. The area of necrosis is small, and would be amenable to bedside debridement. I believe with debridement, and antibiotics her symptoms will resolve. I have discussed the possibility of admission versus outpatient antibiotics. The patient is currently afebrile, and does not exhibit systemic symptoms. After weighing the risks and benefits, the patient has chosen to return home with close monitoring. I will have her see me in the office on Friday of this coming week. Plan for bedside debridement today. Risks/bene fits discussed, informed consent obtained, and all questions answered.
--- NOTE | 2019-07-03 17:56 | Operative Report ---
Nonrecallable Operative Report DATE OF SURGERY: 07/03/19 PREOPERATIVE DIAGNOSIS: Small area of skin necrosis in the right lateral mastectomy flap POSTOPERATIVE DIAGNOSIS: Same as above OPERATION: 1. Sharp, excisional debridement of necrotic skin (2 cm x 1 cm) related to right-sided mastectomy flap. 2. Incision and drainage of infected seroma SURGEON: ANIKA LEON ANESTHESIA: Local TISSUE REMOVED OR ALTERED: Necrotic skin COMPLICATIONS: None apparent ESTIMATED BLOOD LOSS: Minimal PROCEDURE: Drains/implants: 4 x 4 gauze. Procedure in detail: After informed consent was obtained, the patient was laid in the supine position in the ED treatment room. The right axilla was prepped and draped in a normal sterile fashion. 1% lidocaine was used to anesthetize the skin of the axilla. The necrotic portion of skin was excised. Beneath this necrotic skin, a seroma with seropurulent fluid was identified. The cavity was irrigated and cleaned. All necrotic appearing tissue was debrided away sharply with a 15 blade scalpel. Once this was completed, the wound was packed with a 4 x 4 gauze, a dressing was placed, and the procedure was concluded. All sponge, instrument, needle counts were correct. Condition: Stable.
== END 2019-07-03 16:04 | disposition home or self-care (01) ==
LOC: ER 14:17
DX: M96.843 Postprocedural seroma of a musculoskeletal structure following other procedure (principal); N64.1 Fat necrosis of breast; N61.0 Mastitis without abscess
CPT/HCPCS: 99284; 36415; 85025; 11042; 10140; J3490

== ENCOUNTER → 2019-11-22 | Outpatient (CLI) | payer MEDICARE, OTHER ==
--- NOTE | 2019-11-22 12:19 | WOMENS IMAGING REPORT ---
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 EXAM PARAMETERS: Standard craniocaudal and mediolateral oblique views of the breast recorded using d igital acquisition and breast tomosynthesis. Read with the assistance of CAD. 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 FINDINGS: BREAST LATERALITY: left No suspicious masses, suspicious calcifications or architectural distortion. No areas of concern. IMPRESSION: NEGATIVE MAMMOGRAM. BIRADS 1. BREAST DENSITY: b. There are scattered areas of fibroglandular density. BIRAD: ASSESSMENT: 1 Negative RECOMMENDATION: RECOMMENDATION: ROUTINE SCREENING. COMMENT: The patient has been notified of the results by letter per SA requirements. Additional no tification policies are in place for contacting patient with suspicious or incomplete findings. Quality ID #[id number]: The [employer] recommends an annual screening mammogram for women aged 40 years or over. This facility utilizes a reminder system to ensure that all patients receive reminder letters, and/or direct phone calls for appointments. This includes reminders for routine scr eening mammograms, diagnostic mammograms, or other Breast Imaging Interventions when appropriate. Th is patient will be placed in the appropriate reminder system. TECHNICAL DOCUMENTATION: FINDING NUMBER: (1) ASSESSMENT: (1) JOB ID: [id number] 2010 [employer]- All Rights Reserved Reading location - IP/workstation name: [email or web address]
--- NOTE | 2019-11-23 14:28 | WOMENS IMAGING REPORT ---
EXAM DESCRIPTION: BONE DENSITY HIP/SPINE IMAGES COMPLETED DATE/TIME: 11/22/2019 11:39 am REASON FOR STUDY: Z79.811 JAIL (CURRENT) USE OF AROMATASE INHIBITORS Z79.811 DIRECTOR RADIATION ONCOLOGY (CURREN T) USE OF AROMATASE INHIBITORS M85.80 OTH DISRD OF BONE DENSITY AND STRUCTURE, UNSPECIFIED Z13.820 ENCOUNTER FOR SCREENING FOR OSTEOPOROSIS COMPARISON: None. TECHNIQUE: Dual-Energy X-ray Absorptiometry (DEXA) of the AP Spine and Hip. LIMITATIONS: None. FINDINGS: LUMBAR SPINE: The bone mineral density (BMD) measured from L1-L4 in the AP projection correlates with a T-score of 0.1, which is normal as defined by the World Health Organization. BMD Change vs Baseline: N/A HIP: The bone mineral density (BMD) measured in the left hip correlates with a T-score of -2.1, which is o steopenia as defined by the World Health Organization. BMD Change vs Baseline: N/A 10 year Fracture Risk Assessment: Major Osteoporotic Fracture: Not available. Hip Fracture: Not available. IMPRESSION: 1. LUMBAR SPINE WHO CLASSIFICATION: NORMAL. 2. HIP WHO CLASSIFICATION: OSTEOPENIA. OVERALL ASSESSMENT: WHO CLASSIFICATION: OSTEOPENIA. 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
== END ==
LOC: WI 09:14
PROVIDERS: ATTEND Internal Medicine Hematology & Oncology
DX: Z12.31 Encounter for screening mammogram for malignant neoplasm of breast (principal); Z85.3 Personal history of malignant neoplasm of breast; Z13.820 Encounter for screening for osteoporosis; M85.88 Other specified disorders of bone density and structure, other site
CPT/HCPCS: 77080